=== PATIENT | female | born 1970 | race Caucasian/White ===

== ENCOUNTER → 2018-02-16 | Day surgery (SDC) | payer BC ==
[~2018-02-16] MED LIST: Lactated Ringers 1,000 ML IV SCH; Propofol 200 MG/20 ML SDV IV ONE
--- NOTE | 2018-02-16 14:31 | OR ---
DATE OF OPERATION: 02/16/2018 PREOPERATIVE DIAGNOSIS: ABDOMINAL PAIN, DYSPEPSIA. POSTOPERATIVE DIAGNOSIS: ABDOMINAL PAIN, DYSPEPSIA. SURGEON: Kyle Ghosh MD PROCEDURE: 1. EGD WITH BIOPSY X1, WILY. 2. FULL LENGTH COLONOSCOPY WITH RANDOM BIOPSIES X5. 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 COMPLICATIONS: None. SPECIMEN: 1. Antral WILY. 2. Duodenal biopsy x1. 3. Random colon biopsies x5. FINDINGS: 1. Full-length EGD. 2. Small upper fundal erosion. 3. Essentially normal full-length colonoscopy. RECOMMENDATIONS: Medical follow up pending path reports. INDICATIONS: Ms. Rosales is a 47-year-old, who has been having some chronic issues with dyspepsia and has been having some postprandial bloating and pain at times. She does take Nexium for her GERD and lately she has been having some increase in lower pelvic pain. Ultrasound was negative because of her chronic GERD and pain in her lower abdomen. We elected to proceed with both upper and lower endoscopy. DESCRIPTION OF PROCEDURE: The patient was prepped and draped, placed in left lateral decubitus position. A lubricated Olympus gastroscope was inserted over a bit and advanced to cricopharyngeus area and easily intubated in the esophagus. Esophageal lining was benign in its entire course. The Z-line was crisp and sharp at 38 cm. The scope was advanced into the stomach through the pylorus into the second portion into the duodenum. This and the duodenal bulb were benign. A biopsy of the duodenal bulb was taken given the patient's chronic dyspepsia. Scope was brought back in the stomach and retroflexed. The upper fundus and cardia appeared benign. Upon straightening, the rest of the fundus and antrum appeared completely unremarkable. Upon withdrawal of scope, the upper fundus did have a small little area of erosion, and we did do biopsy of that along WILY. Air was then suctioned from the stomach and the scope was removed without complication. A lubricated Olympus colonoscope was then inserted and safely and easily advanced to the cecum. We were able to intubate into the terminal ileum through the ileocecal valve without any complication. A biopsy was taken. This area appeared benign. Throughout the entire length of the colon, I could find no signs of any polyps, mass, ulceration, or bleeding sites. No vascular abnormalities or obvious signs of colitis. There were no diverticula. Retroflexion of scope in the rectum showed no perianal lesions. We did do random biopsies from the terminal ileum all way through to the sigmoid totalling 5. Air was suctioned and the scope was removed without complication. NEENA/BETY /[id number]
== END ==
LOC: CC.SDS 06:32
PROVIDERS: ATTEND Family Medicine
DX: K29.50 Unspecified chronic gastritis without bleeding (principal); K21.9 Gastro-esophageal reflux disease without esophagitis; K25.7 Chronic gastric ulcer without hemorrhage or perforation; I10 Essential (primary) hypertension; E03.9 Hypothyroidism, unspecified; E66.9 Obesity, unspecified; Z68.35 Body mass index [BMI] 35.0-35.9, adult; Z79.899 Other long term (current) drug therapy; Z98.890 Other specified postprocedural states
CPT/HCPCS: 36415; 84703; 87081; J2704; J7120

== ENCOUNTER → 2020-04-09 | Day surgery (SDC) | payer BC ==
[~2020-04-09] MED LIST changes: +Dexamethasone 4 MG/ML 5 ML MDV IV ONE; +HYDROmorphone 1 MG/ML Syringe IV ONE; +Ketamine 200 MG/20 ML MDV IV ONE; +Ketorolac 30 MG/ML SDV IVPUSH ONE; +Midazolam 1 MG/ML 2 ML SDV IV ONE; +Morphine 4 MG/ML VIAL IV ONE; +Ondansetron 4 MG/2 ML SDV IV ONE; +fentaNYL 100 MCG/2 ML SDV IV ONE
--- NOTE | 2020-04-09 15:34 | OR ---
DATE OF OPERATION: 04/09/2020 PREOPERATIVE DIAGNOSIS: LIPOMA, LOWER RIGHT QUADRANT ABDOMINAL WALL. POSTOPERATIVE DIAGNOSIS: LIPOMA, LOWER RIGHT QUADRANT ABDOMINAL WALL. SURGEON: Yosvany Delacruz MD PROCEDURE: EXCISION OF LIPOMA, RIGHT LOWER QUADRANT ABDOMINAL WALL. THIS MEASURED 10 X 5 CM. ANESTHESIA: General. ESTIMATED BLOOD LOSS: Minimum. SPECIMEN: Lipoma. INDICATIONS: This 49-year-old female has an enlarging symptomatic painful lipoma in the panniculus in the right lower quadrant. She states that she continually bumps this and it has become more symptomatic over the last several months. It measures roughly 10 cm by physical examination. DESCRIPTION OF PROCEDURE: After adequate preparation, an elliptical incision was made around this lipoma. This was made about 5 cm in diameter and the lipoma was then shelled out from the subcutaneous tissue. This was not an encapsulated lipoma, but instead had multiple little roots or projections out into the subcutaneous tissue. This was taken down as far as necessary to get the bottom part cleared. As above, the specimen was a 10 x 5 cm, there were no other surgical margins needed. So for coding purposes this is a 10 x 5 cm lipoma. Hemostasis was controlled with cautery. 2-0 Vicryl was used to close the deep layer and 4-0 Vicryl was used for the skin. MARIPOSA/BETY /[id number]
== END ==
LOC: CC.SDS 08:28
PROVIDERS: ATTEND Surgery
DX: D17.1 Benign lipomatous neoplasm of skin and subcutaneous tissue of trunk (principal); I10 Essential (primary) hypertension; K21.9 Gastro-esophageal reflux disease without esophagitis; E03.9 Hypothyroidism, unspecified; F17.200 Nicotine dependence, unspecified, uncomplicated; Z79.899 Other long term (current) drug therapy; Z79.890 Hormone replacement therapy
CPT/HCPCS: 22903; 36415; 84703; J1100; J1170; J1885; J2250; J2270; J2405; J2704; J3010; J7120; 00800